=== PATIENT | female | born 1965 ===

== ENCOUNTER 2017-04-13 11:28 | Inpatient (IN) | payer OTHER, MEDICARE ==
[2017-04-13] MEDS ORDERED: Bisacodyl SUPP* 10 MG SUPP PR PRN (15:14)
[2017-04-13] MEDS ORDERED: Al Hydrox/Mg Hydrox/Simet LIQ* 30 ML UDC PO PRN (15:14)
[2017-04-13] MEDS ORDERED: Acetaminophen TAB* 325 MG PO PRN (15:14)
[2017-04-13] MEDS ORDERED: Senna TAB PO PRN (15:14)
[2017-04-13] MEDS ORDERED: Oxymetazoline 0.05% NASAL SPR* 15 ML BTL BOTH NARES PRN (15:20)
[2017-04-13] MEDS ORDERED: oxyCODONE/Acetamin 5/325 MG* TAB PO PRN (15:21)
[2017-04-13] MEDS ORDERED: Rizatriptan (NF) 5 MG TAB PO PRN (15:27)
[2017-04-13] MEDS: oxyCODONE/Acetamin 5/325 MG* TAB PO PRN ×2 (17:48→22:49)
[2017-04-13] MEDS: PHENobarbital TAB(*) 30 MG PO SCH (21:07)
[2017-04-13] MEDS: Docusate CAP* 100 MG PO SCH (21:07)
[2017-04-13] MEDS: predniSONE TAB* 20 MG PO SCH (21:08)
[2017-04-13] MEDS: LUBIPROSTONE 8 MCG PO SCH (21:10)
[2017-04-13] MEDS: Heparin VIAL(*) 5000 UNITS/ML VIAL (FIVE THOUSAND) SUBCUT SCH (21:10)
[2017-04-13] MEDS: Nystatin TOP POWDER* 15 GM BTL TOPICAL SCH (21:15)
[2017-04-13] MEDS: Zolpidem TAB* 10 MG PO PRN (23:21)
--- NOTE | 2017-04-13 23:41 | HP ---
CC: Dr. Cedric Dumont; Dr. Cruz * REHABILITATION ADMISSION: DATE OF ADMISSION: 04/13/17 PRIMARY CARE PROVIDER: Dr. Cedric Dumont, phone number is [phone]. VASCULAR SURGEON: Dr. Cruz with [facility]. REASON FOR ADMISSION: Left below-knee amputation. HISTORY OF PRESENT ILLNESS: This is a 51-year-old woman who more than 36 years ago developed a blister from a riding boot. She has dealt with a nonhealing ulcer since that time and 3 years ago underwent reconstruction including with external fixator and unfortunately developed complications and cellulitis. She had underlying osteomyelitis and ultimately it was decided that she will require a left below-knee amputation. She was admitted to [facility] on 04/08/17 and underwent the left below-knee amputation. Postoperatively, she was on a GRADER MARKER with morphine. Before her admission, she was having issues with hypertension and her verapamil recently was increased to 360 mg a day. She still does have some hypertensive episodes. She has been on IV antibiotics for the last 3 to 4 months with an indwelling PICC line in her left arm. She has a sensitivity to tape and therefore, required prednisone to control the itching and it got down to 20 mg a day before her admission for the below-knee amputation. The dose was increased to 60 mg while she was in the hospital, but she feels like it could probably be decreased at this point. 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 She requires digital stimulation and recently has started Amitiza twice a day to treat that. She normally catheterizes herself for her bladder 6 times per day and has done that for 3 to 4 years. Prior to admission, she was independent with mobility using a knee scooter on the left. She was independent of all her activities of daily living. With physical therapy, she has required supervision for bed mobility and contact guard assistance to help with a rolling walker. She has not yet tried to do any stairs. With occupational therapy, she has not yet been instructed in donning and doffing her left immediate postoperative orthosis or in stump care. She requires contact guard for functional transfers. She is independent in eating. PAST MEDICAL HISTORY: 1. Seizure disorder since age of 15. 2. Migraines. 3. Anxiety. 4. Chronic left heel ulcer with secondary osteomyelitis, now status post below - knee amputation. See history of present illness. 5. 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 7. Insomnia. 8. Hypertension. MEDICATIONS: 1. Afrin nasal spray, 1 spray b.i.d. p.r.n. 2. Percocet 10/325 one p.o. q.6 hours p.r.n. 3. Prozac 20 mg daily. 4. Nystatin 1 g b.i.d. topically to the groin. 5. Phenobarbital 129.6 mg q.h.s. 6. Prednisone 60 mg daily, which is going to be decreased to 40 mg over the next 3 days and then down to 20 mg daily. 7. Rizatriptan 10 mg daily p.r.n. migraine. 8. Verapamil SR 360 mg daily. 9. Ambien 20 mg q.h.s. p.r.n. insomnia. 10. Heparin 5000 units q.8 hours for DVT prophylaxis. 11. Amitiza 8 mg p.o. b.i.d. ALLERGIES: Include BACTRIM, CIPRO, DEMEROL, NUTS, ZOSYN, VANCOMYCIN, and TAPE. FAMILY HISTORY: Mother with hypertension, hyperlipidemia, and thyroid issues. Father with diabetes mellitus, hypertension, and substance abuse. Brother thyroid issues. SOCIAL HISTORY: She lives with her , a 23-year-old daughter and dog in [place]. She has a trailer with 6 steps to enter, for which they are building a ramp. No smoking. She has 1 small drink per day. She has been on social security disability since the when she started having the spinal issues. 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 She has horses that she takes care of and is her hobby. She also embroiders. REVIEW OF SYSTEMS: See history of present illness and past medical history. The remainder of system review was completed. No significant findings. PHYSICAL EXAMINATION GENERAL: Well developed, well nourished. Mental Status: In no distress. Alert and oriented x3. VITAL SIGNS: Temperature 97.9, blood pressure 140/85, heart rate 77, respirations 15, oxygen saturation 97% on room air. HEENT: Normocephalic, atraumatic. Oropharynx clear. Moist mucous membranes. LUNGS: Clear to auscultation bilaterally. HEART: Regular rate and rhythm. ABDOMEN: Active bowel sounds. Soft, mild tenderness, nondistended. EXTREMITIES: She has a left below-knee amputation with debi, clean, dry, and intact. There does not appear to be any drainage. No edema in the right lower extremity. 2+ pedal pulses. NEUROLOGICAL: She has 5/5 strength in bilateral upper extremities and her right lower extremity as well as in her left lower extremity. Sensation is intact in both upper extremities and the right lower extremity, but diminished throughout the left leg as part of her chronic neuropathy from the spinal tumor. MUSCULOSKELETAL: She has functional range of motion of all her major joints. LABORATORY DATA: On 04/11/17, her hemoglobin was 10.4 and hematocrit 30.3. Sodium 135, potassium 4.1, BUN 9, creatinine 0.6. IMPRESSION: A 51-year-old woman with chronic left leg neuropathy, neurogenic bladder and neurogenic bowel from a L2 fatty tumor, who is now status post left below-knee amputation due to chronic osteomyelitis. She will be admitted to [facility] so that she can return to independent living. PLAN: 1. Left Below-knee amputation. She is to follow up with Vascular Surgery on at 10 a.m. We will get her a stump sliver lapper and instruct her how to use it along with donning and doffing her immediate postoperative orthosis. 2. Itching. Start to taper prednisone down to 40 mg x3 days and then go down to 20 mg and hold it there since that was her home dose. 3. Neurogenic bladder: Continue self-catheterization 6 times per day as needed. 4. Neurogenic bowel. Restart Amitiza. Her will try to bring that in for her. 5. Hypertension. Continue with verapamil and monitor vital signs. 6. Migraines: Triptans or similar medicine on as needed basis. 7. Pain. Continue with Percocet as needed. 8. Impaired mobility. She will be seen by Physical Therapy for wheelchair mobility, which she will need for the community with a platform to keep her left knee straight. She will need to be able to ascend and descend ramps. We will also work with her on ambulation using a walker. 9. Impaired self-care. She will be seen by Occupational Therapy for ADL training and IADL training. 10. Advance directives. She is a full code. Her is her healthcare proxy. 11. DVT prophyllaxis with heparin 5000units sc Q8h. ESTIMATED LENGTH OF STAY: 3 to 5 days. [id number]/[facility] #: [id number] [place]
[2017-04-14] MEDS ORDERED: oxyCODONE/Acetamin 5/325 MG* TAB PO PRN (02:00)
[2017-04-14 06:13] LABS: Hematocrit 35 % (35-47); Hemoglobin 11.8 g/dl (12.0-16.0); Mean Corpuscular HGB Conc 34 g/dl (31-36); Mean Corpuscular Hemoglobin 32 pg (27-31); Mean Corpuscular Volume 94 fL (80-97); Mean Platelet Volume 8 um3 (7.4-10.4); Red Blood Count 3.71 10^6/ul (4.0-5.4); Red Cell Distribution Width 15 % (10.5-15); White Blood Count 8.2 10^3/ul (3.5-10.8)
[2017-04-14] MEDS: Heparin VIAL(*) 5000 UNITS/ML VIAL (FIVE THOUSAND) SUBCUT SCH ×3 (06:16→21:07)
[2017-04-14 06:29] LABS: Albumin 3.4 g/dL (3.2-5.2); BUN/Creatinine Ratio 17.1 (8-20); Calcium 9.2 mg/dL (8.6-10.3); EGFR Non-African American 87.9 (>60); Globulin 2.8 g/dL (2-4); Potassium 4.4 mmol/L (3.5-5.0); Total Bilirubin 0.3 mg/dL (0.2-1.0); Total Protein 6.2 g/dL (6.4-8.9)
[2017-04-14] MEDS: Verapamil SR CAP* 180 MG PO SCH (09:14)
[2017-04-14] MEDS: LUBIPROSTONE 8 MCG PO SCH ×2 (09:15→21:04)
[2017-04-14] MEDS: FLUoxetine CAP* 20 MG PO SCH (09:15)
[2017-04-14] MEDS: oxyCODONE/Acetamin 5/325 MG* TAB PO PRN ×4 (09:15→21:06)
[2017-04-14] MEDS: Docusate CAP* 100 MG PO SCH ×2 (09:15→21:06)
[2017-04-14] MEDS: Nystatin TOP POWDER* 15 GM BTL TOPICAL SCH ×2 (09:18→21:06)
[2017-04-14] MEDS: predniSONE TAB* 20 MG PO SCH (21:05)
[2017-04-14] MEDS: PHENobarbital TAB(*) 30 MG PO SCH (21:05)
[2017-04-14] MEDS: Zolpidem TAB* 10 MG PO PRN (23:15)
[2017-04-15] MEDS: Heparin VIAL(*) 5000 UNITS/ML VIAL (FIVE THOUSAND) SUBCUT SCH ×3 (06:30→21:28)
[2017-04-15] MEDS: Verapamil SR CAP* 180 MG PO SCH (08:35)
[2017-04-15] MEDS: oxyCODONE/Acetamin 5/325 MG* TAB PO PRN ×3 (08:36→20:34)
[2017-04-15] MEDS: Docusate CAP* 100 MG PO SCH ×2 (08:36→20:28)
[2017-04-15] MEDS: Nystatin TOP POWDER* 15 GM BTL TOPICAL SCH ×2 (08:36→20:26)
[2017-04-15] MEDS: FLUoxetine CAP* 20 MG PO SCH (08:36)
[2017-04-15] MEDS: LUBIPROSTONE 8 MCG PO SCH ×2 (08:39→20:28)
[2017-04-15] MEDS ORDERED: SUMAtriptan TAB* 50 MG PO PRN (13:56)
[2017-04-15] MEDS: PHENobarbital TAB(*) 30 MG PO SCH (20:25)
[2017-04-15] MEDS: predniSONE TAB* 20 MG PO SCH (20:25)
[2017-04-15] MEDS: Zolpidem TAB* 10 MG PO PRN (22:58)
[2017-04-16] MEDS: oxyCODONE/Acetamin 5/325 MG* TAB PO PRN ×5 (03:14→21:04)
[2017-04-16] MEDS: Heparin VIAL(*) 5000 UNITS/ML VIAL (FIVE THOUSAND) SUBCUT SCH ×3 (05:41→21:08)
[2017-04-16] MEDS: Verapamil SR CAP* 180 MG PO SCH (09:02)
[2017-04-16] MEDS: FLUoxetine CAP* 20 MG PO SCH (09:02)
[2017-04-16] MEDS: Nystatin TOP POWDER* 15 GM BTL TOPICAL SCH ×2 (09:03→21:08)
[2017-04-16] MEDS: LUBIPROSTONE 8 MCG PO SCH ×2 (09:03→21:05)
[2017-04-16] MEDS: Docusate CAP* 100 MG PO SCH ×2 (09:03→21:05)
[2017-04-16] MEDS: Gabapentin CAP(*) 300 MG PO SCH ×3 (11:33→21:06)
--- NOTE | 2017-04-16 12:13 | PMRUTEAM ---
PMRU: Goals Current Status: Nursing: Current Status Skin Deviations [LEFT BKA] Incision Skin Deviation Description [ MD in room for dressing change LEFT BKA] Bladder Current Status continent, able to pull up/down pants, and self hygiene Bowel Current Status continent, able to pull up/down pants, and self hygiene Nutrition Current Status adequeate Medication Current Status supervision Physical Therapy: Current Status Bed Mobility Assistance Supervision Transfer Moblility Assistance Supervision,Contact Guard Assist Transfer/Bed Mobility None,Rolling Walker Recommended Devices Ambulation Assistance Contact guard Ambulation Assistive Devices Rolling Walker Stairs Assistance not tested Stairs Recommended Devices Crutches,Two Rails Number of Stairs 1 Manual Wheelchair Control/ Bilateral UE's Technique Wheelchair Propulsion Ability Independent Wheelchair Distance (ft) 150 Objective Comments patient continues to need cuing for procedure in W /C use but demonstrates greatly improving ability/ mobiltiy. Occupational Therapy: Current Status Upper Body Dressing independent Lower Body Dressing independent Bathing Independent Toileting Ind with Adaptive Equip Toilet Transfer Ind with Adaptive Equip Shower Transfer Supervision Eating Independent Instrumental ADL independent with walker for IADLs Rec Therapy: Current Status Summary of Assessment and Pt. was in her room - visiting with her mother. Clinical Impression Pt. was open to conversation and very engaged throughout. Pt. identified with numerous interests and active involvement in them prior to admission. Pt. has activities of interest in her room - rakesh sanchez. Treatment Goals Pt. will engage in leisure activities prior to admission. Treatment Plan Provide RT services and encourage involvement. Social Work: Current Status Discharge Plan return home with home care svs and family support Potential for Family Training pt's family is involved and supportive Anticipated Discharge Home Destination Discharge With home care svs and family support Goals: Physical Therapy: Initial Goals Bed Mobility Assistance Independent Transfer Mobility Assistance Independent Transfer/Bed Mobility Rolling Walker,Axillary Crutches Recommended Devices Ambulation Independent Ambulation Recommended Devices Rolling Walker,Axillary Crutches Ambulation Distance 50 Wheelchair Propulsion Ability Independent Wheelchair Distance (ft) 150 Stairs Assistance Independent Stair Recommended Devices Crutches,Two Rails Number of Stairs 5 Occupational Therapy: Initial Goals Goals to be Completed in (Days 1-2 days ) Upper Body Bathing Routine Independent Lower Body Bathing Routine Independent Upper Body Dressing Routine Independent Lower Body Dressing Routine Modified Independent with Toilet Hygeine and Clothing Modified Independent with Management Routine Toilet Transfer Routine Modified Independent with Step-In Shower Transfer Modified Independent with Routine Tub Transfer Routine Modified Independent with Functional Transfers for ADL Modified Independent with Grooming Routine Modified Independent with Feeding Routine Independent Light Housekeeping Tasks Modified Independent with Nursing: Goals Bladder Goal independent Bowel Goal independent Nutrition Goal 100% of all meals Medication Goal independent Social Work: Goals Discharge Plan return home with home care svs and family support Potential for Family Training pt's family is involved and supportive Anticipated Discharge Home Destination Discharge With home care svs and family support Care Plan: Care Plan ADL's - Improve/Maintain Start: 04/14/17 14:30 Freq: DAILY Status: Active Target: Activity Type Activity Date Activity User E-Sign Co-Sign Detail Recorded Client Recorded Date Recorded By Document 04/15/17 14:52 [id number] 04/15/17 14:53 [id number] 04/15/17 14:52 PMRU Outcome: ADL's/ADL Transfers Orders/Interventions Occupational Therapy Evaluation & Treatment Communication Tool in Patient Room Device Yes: w/c, walker Patient to receive OT 5x/wk for 60-120 Therex min/day Self Care Management Group Therapy UE/LE ADL's with Assist No ADL Transfers with Assist Yes Toileting: Transfers,Clothing Management No ,Hygeine w/Assist Light Kitchen/Laundry w/Assist Yes Progression Toward Outcome/Goals Progressing Outcome/Goals Met Pt. did not complete full ADL session, as she did not want to get off toilet. Pt. completed cooking activity for afternoon session and stood for 10-15 min without becoming unsteady. DVT Prophylaxis- Improve/Maintain Start: 04/14/17 00:37 Freq: DAILY Status: Active Target: Activity Type Activity Date Activity User E-Sign Co-Sign Detail Recorded Client Recorded Date Recorded By Document 04/16/17 10:38 [id number] [email or web address] 04/16/17 10:38 [id number] 04/16/17 10:38 PMRU Outcome: DVT Prophylaxis Outcome/Goals Remains Free of DVT Demonstrates Knowledge of DVT Prevention/ Treatment TEDS Stockings on Every AM, Off at HS Progression Toward Outcome/Goals Progressing Outcome/Goals Met Remains Free of DVT Discharge Planning - Improve/Maintain Start: 04/14/17 00:37 Freq: DAILY Status: Active Target: Activity Type Activity Date Activity User E-Sign Co-Sign Detail Recorded Client Recorded Date Recorded By Document 04/16/17 10:38 [id number] 04/16/17 10:38 [id number] 04/16/17 10:38 PMRU Outcome: Discharge Planning Identify Patient Needs yes Update Patient Family No Outcome/Goals Demonstrates Understanding of Discharge Plan Progression Toward Outcome/Goals Progressing Education-Improve/Maintain Start: 04/14/17 00:37 Freq: DAILY Status: Active Target: Activity Type Activity Date Activity User E-Sign Co-Sign Detail Recorded Client Recorded Date Recorded By Document 04/16/17 10:38 [id number] 04/16/17 10:38 [id number] 04/16/17 10:38 PMRU Outcome: Education Outcome/Goals Encourage Questions Progression Toward Outcome/Goals Progressing /GI-Improve/Maintain Start: 04/14/17 00:37 Freq: DAILY Status: Active Target: Activity Type Activity Date Activity User E-Sign Co-Sign Detail Recorded Client Recorded Date Recorded By Document 04/16/17 10:38 [email or web address] 04/16/17 10:38 [id number] 04/16/17 10:38 PMRU Outcome: Genitourinary/ Gastrointestinal Genitourinary- Outcome/Goals Remain Free of Hospital- Acquired UTI Gastrointestinal-Outcome/Goals Maintain/ Achieve Bowel Regularity in Accordance with Pt's Baseline Prevent Constipation Laxatives as Ordered Progression Toward Outcome/Goals - Progressing Progression Toward Outcome/Goals - GI Progressing Gastrointestinal-Outcome/Goals Met Prevent Constipation Mobility- Improve/Maintain Start: 04/13/17 21:57 Freq: DAILY Status: Active Target: Activity Type Activity Date Activity User E-Sign Co-Sign Detail Recorded Client Recorded Date Recorded By Document 04/15/17 19:01 [id number] 04/15/17 19:01 [id number] 04/15/17 19:01 PMRU Outcome: Mobility Physical Therapy Evaluation and Yes Treatment Activity OOB with Assistance Yes NWB Yes: LLE Device Yes Assistance Yes Patient to be seen 5x/wk for 60-120 min/ Therex day for: Mobility Training Gait Training W/C Mobility Balance Outcome/Goals Maintain/ Achieve Baseline Mobility Status Improve Mobility Status Demonstrates Proper Use of Assistive Devices Free from Complications of Immobility Progression Toward Outcome/Goals Progressing Bed Mobility Yes: independent Transfers Yes: independent with RW/ axillary crutches Gait x ft Yes: independent with RW/ axillary Crutches 50' W/C Mobility x ft Yes: independent to community destinations ( 150') Up/Down Stairs Yes: independet up/down 5 stairs Pain/Comfort- Improve/Maintain Start: 04/14/17 00:37 Freq: DAILY Status: Active Target: Activity Type Activity Date Activity User E-Sign Co-Sign Detail Recorded Client Recorded Date Recorded By Document 04/16/17 10:38 [id number] 04/16/17 10:38 [id number] 04/16/17 10:38 PMRU Outcome: Pain/Comfort Outcome/Goals Demonstrates Knowledge and Use of Available Comfort Measures Achieves Acceptable Comfort/Pain Level as Determined by Patient/Condit Maintain Comfort Level Allowing Patient to Fully Participate in Rehab Progression Toward Outcome/Goals Progressing Outcome/Goals Met Demonstrates Knowledge and Use of Available Comfort Measures Safety- Improve/Maintain Start: 04/14/17 00:37 Freq: DAILY Status: Active Target: Activity Type Activity Date Activity User E-Sign Co-Sign Detail Recorded Client Recorded Date Recorded By Document 04/16/17 10:38 [id number] [email or web address] 04/16/17 10:38 [id number] 04/16/17 10:38 PMRU Outcome: Safety Outcome/Goals Remain Free of Injury or Harm Cooperates with Safety Measures for Least Restrictive Environment Prevent Falls/ Injury Progression Toward Outcome/Goals Progressing Outcome/Goals Met Remain Free of Injury or Harm Cooperates with Safety Measures for Least Restrictive Environment Skin- Improve/Maintain Start: 04/14/17 00:37 Freq: DAILY Status: Active Target: Activity Type Activity Date Activity User E-Sign Co-Sign Detail Recorded Client Recorded Date Recorded By Document 04/16/17 10:38 [id number] [email or web address] 04/16/17 10:38 [id number] 04/16/17 10:38 PMRU Outcome: Skin Skin Risk Level Low Skin Orders Dressing Change Teach Patient Outcome/Goals Maintain/ Improve Skin Intergrity Surgical Incisions Healing Progression Toward Outcome/Goals Progressing Medicine Note: Length of Stay: [3 days] Anticipated Discharge Destination: Home Tentative Discharge Date: [04/19/17] Discharged to: [home]
[2017-04-16 20:22] LABS: TSH (Thyroid Stimulating Horm) 2.32 mcIU/mL (0.34-5.60)
[2017-04-16 20:29] LABS: Free T4 0.7 ng/dL (0.61-1.12)
[2017-04-16] MEDS: predniSONE TAB* 20 MG PO SCH (21:06)
[2017-04-16] MEDS: PHENobarbital TAB(*) 30 MG PO SCH (21:07)
[2017-04-16] MEDS: Zolpidem TAB* 10 MG PO PRN (23:11)
[2017-04-17] MEDS: Heparin VIAL(*) 5000 UNITS/ML VIAL (FIVE THOUSAND) SUBCUT SCH ×3 (06:13→22:03)
[2017-04-17] MEDS: oxyCODONE/Acetamin 5/325 MG* TAB PO PRN ×5 (06:13→23:00)
[2017-04-17] MEDS: FLUoxetine CAP* 20 MG PO SCH (09:13)
[2017-04-17] MEDS: Verapamil SR CAP* 180 MG PO SCH (09:14)
[2017-04-17] MEDS: Gabapentin CAP(*) 300 MG PO SCH ×3 (09:14→21:59)
[2017-04-17] MEDS: LUBIPROSTONE 8 MCG PO SCH ×2 (09:15→22:01)
[2017-04-17] MEDS: Docusate CAP* 100 MG PO SCH ×2 (09:15→22:00)
[2017-04-17] MEDS: Nystatin TOP POWDER* 15 GM BTL TOPICAL SCH ×2 (09:16→22:02)
[2017-04-17] MEDS ORDERED: Aspirin EC TAB* 325 MG PO ONE (10:54)
[2017-04-17] MEDS: predniSONE TAB* 20 MG PO SCH (22:00)
[2017-04-17] MEDS: PHENobarbital TAB(*) 30 MG PO SCH (22:00)
[2017-04-17] MEDS: Zolpidem TAB* 10 MG PO PRN (23:00)
[2017-04-18] MEDS: Heparin VIAL(*) 5000 UNITS/ML VIAL (FIVE THOUSAND) SUBCUT SCH ×3 (06:19→21:16)
[2017-04-18] MEDS: FLUoxetine CAP* 20 MG PO SCH (08:54)
[2017-04-18] MEDS: Docusate CAP* 100 MG PO SCH ×2 (08:54→21:13)
[2017-04-18] MEDS: Verapamil SR CAP* 180 MG PO SCH (08:54)
[2017-04-18] MEDS: Gabapentin CAP(*) 300 MG PO SCH ×3 (08:55→21:12)
[2017-04-18] MEDS: LUBIPROSTONE 8 MCG PO SCH ×2 (08:55→21:15)
[2017-04-18] MEDS: oxyCODONE/Acetamin 5/325 MG* TAB PO PRN ×3 (08:57→22:38)
[2017-04-18] MEDS ORDERED: Ibuprofen TAB* 400 MG PO ONE (11:39)
[2017-04-18] MEDS: Nystatin TOP POWDER* 15 GM BTL TOPICAL SCH ×2 (12:18→21:17)
[2017-04-18] MEDS: PHENobarbital TAB(*) 30 MG PO SCH (21:13)
[2017-04-18] MEDS: predniSONE TAB* 20 MG PO SCH (21:13)
[2017-04-18] MEDS: Zolpidem TAB* 10 MG PO PRN (22:38)
[2017-04-19] MEDS: Heparin VIAL(*) 5000 UNITS/ML VIAL (FIVE THOUSAND) SUBCUT SCH ×2 (06:49→14:08)
[2017-04-19] MEDS: Verapamil SR CAP* 180 MG PO SCH (08:45)
[2017-04-19] MEDS: Nystatin TOP POWDER* 15 GM BTL TOPICAL SCH (08:45)
[2017-04-19] MEDS: Docusate CAP* 100 MG PO SCH (08:46)
[2017-04-19] MEDS: FLUoxetine CAP* 20 MG PO SCH (08:46)
[2017-04-19] MEDS: Gabapentin CAP(*) 300 MG PO SCH ×2 (08:46→14:07)
[2017-04-19] MEDS: oxyCODONE/Acetamin 5/325 MG* TAB PO PRN ×2 (08:47→14:08)
[2017-04-19] MEDS: LUBIPROSTONE 8 MCG PO SCH (08:47)
[2017-04-19 16:41] VITALS: BP 134/85
[2017-04-19] MEDS ORDERED: predniSONE TAB* 10 MG PO SCH (21:00)
--- NOTE | 2017-04-21 06:04 | DS ---
CC: Anne-Marie Aviles * DISCHARGE SUMMARY: DATE OF ADMISSION: 04/13/17 DATE OF DISCHARGE: 04/19/17 DISCHARGE DIAGNOSES: 1. Left below the amputation. 2. Seizure disorder. 3. Migraine headaches. 4. Anxiety. 5. Spinal tumor at L2 with left lower extremity neuropathy and neurogenic bladder and bowel. HISTORY OF ILLNESS AND HOSPITAL COURSE: For complete history of the events leading up to her rehab stay, please see the history and physical dictated by Dr. Sybil Rivera on 04/13/17. While on the rehab unit, the patient remained medically stable. She was given a research and development specialist for her left below the knee amputation. The patient was continued on a prednisone taper, which she was on for chronic pruritus. The patient otherwise seemed to be stable. She did receive her stump research and development specialist. The patient was seen by both physical and occupational therapy and made good gains with both disciplines. With physical therapy at the time of admission, the patient required contact guard to min assist to transfer. She was able to ambulate 20 feet with contact guard. With occupational therapy, she has contact guard to min assist for toileting and toilet transfers. By the time of discharge, she was independent in transfer. She was able to ambulate 150 feet with a walker independently. She was independent with her activities of daily living including toileting and toilet transfers. The patient was discharged home on 04/19/17. DISCHARGE DIET: Regular. DISCHARGE MEDICATIONS: Included, 1. Neurontin 300 mg 3 times a day. 2. Amitiza 8 mg twice a day. 3. Prednisone 15 mg at bedtime. 4. Ambien 20 mg at bedtime as needed. 5. Prozac 20 mg daily. 6. Verapamil 360 mg daily. 7. Maxalt 10 mg as needed for migraine headaches. 8. Percocet one tablet every 4 hours as needed. SERVICES AFTER DISCHARGE: Through [facility]. She will have home nursing, home physical therapy and occupational therapy. Followup will be with Dr. Cruz's office at [place] for Vascular Surgery. She will also followup with her primary care doctor Dr. Cedric Dumont. Please note she was given a 7-day supply of Ambien and she said she needed it. [id number]/[facility] #: [id number] [facility]
[2017-04-23] MEDS ORDERED: predniSONE TAB* 5 MG PO SCH (21:00)
== END 2017-04-19 18:49 | disposition home health service (06) | DRG 560 ==
LOC: PMRU 13:52
PROVIDERS: ADMIT Physical Medicine & Rehabilitation; ATTEND Physical Medicine & Rehabilitation
PROC: F07Z5ZZ Bed Mobility Treatment (ICD-10-PCS; principal; 2017-04-13)
PROC: F07Z9ZZ Gait Training/Functional Ambulation Treatment (ICD-10-PCS; 2017-04-13)
PROC: F07Z8ZZ Transfer Training Treatment (ICD-10-PCS; 2017-04-13)
PROC: F07Z4ZZ Wheelchair Mobility Treatment (ICD-10-PCS; 2017-04-13)
PROC: F08Z0ZZ Bathing/Showering Techniques Treatment (ICD-10-PCS; 2017-04-13)
PROC: F08Z1ZZ Dressing Techniques Treatment (ICD-10-PCS; 2017-04-13)
PROC: F08Z3ZZ Feeding/Eating Treatment (ICD-10-PCS; 2017-04-13)
DX: Z47.81 Encounter for orthopedic aftercare following surgical amputation (principal); K59.2 Neurogenic bowel, not elsewhere classified; Z89.512 Acquired absence of left leg below knee; N31.8 Other neuromuscular dysfunction of bladder; G40.909 Epilepsy, unspecified, not intractable, without status epilepticus; G43.909 Migraine, unspecified, not intractable, without status migrainosus; D49.2 Neoplasm of unspecified behavior of bone, soft tissue, and skin; G57.92 Unspecified mononeuropathy of left lower limb; G47.00 Insomnia, unspecified; I10 Essential (primary) hypertension; Z79.01 Long term (current) use of anticoagulants; Z79.52 Long term (current) use of systemic steroids; Z79.899 Other long term (current) drug therapy; Z88.1 Allergy status to other antibiotic agents; Z91.018 Allergy to other foods; Z88.5 Allergy status to narcotic agent; Z88.8 Allergy status to other drugs, medicaments and biological substances; Z91.048 Other nonmedicinal substance allergy status; Z82.49 Family history of ischemic heart disease and other diseases of the circulatory system; Z83.49 Family history of other endocrine, nutritional and metabolic diseases; Z83.3 Family history of diabetes mellitus; Z81.4 Family history of other substance abuse and dependence; L29.9 Pruritus, unspecified
CPT/HCPCS: 36415; 80053; 84439; 84443; 85025; A9270-GY; J1644; J7512